=== PATIENT | male | born 1990 | race Caucasian/White ===

== ENCOUNTER → 2020-04-18 | Outpatient (CLI) | payer OTHER ==
--- NOTE | 2020-04-18 13:26 | RAD ---
EXAM: Chest, 2 views. HISTORY: Cough. Shortness of air. COMPARISON: None. FINDINGS: 2 views of the chest are obtained. There is no infiltrate, pleural effusion or pneumothorax. The heart is normal in size. IMPRESSION: No acute pulmonary finding. Electronically signed by: Isabel Miller MD (04/18/2020 1:23 PM) [facility]
== END ==
LOC: EEVIPCON 10:39 → DXRAD 10:39
PROVIDERS: ATTEND Preventive Medicine Occupational Medicine
DX: R06.02 Shortness of breath (principal); R05 Cough
CPT/HCPCS: 71046